=== PATIENT | female | born 2000 | race Two or more races ===

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

== ENCOUNTER 2020-04-27 12:30 | Emergency (ER) | payer MEDICAID, OTHER ==
[2020-04-27] MEDS ORDERED: PROMETHAZINE HCL 25 MG TABLET PO ONE (15:58)
[2020-04-27] MEDS ORDERED: LIDOCAINE 1% INJ-PF (10 MG/ML) 30 ML SDV INJ ONE (15:58)
[2020-04-27] MEDS ORDERED: AZITHROMYCIN 250 MG TABLET PO ONE (15:58)
[2020-04-27] MEDS ORDERED: CEFTRIAXONE INJ 250 MG VIAL IM ONE (15:58)
[2020-04-27 18:11] LABS: BACTERIA (WET MOUNT) 3+ BACTERIA SEEN; EPITHELIALS (WET MOUNT) 3+ EPITHELIALS SEEN; RBCS (WET MOUNT) RARE RBCS SEEN; T.VAGINALIS (WET MOUNT) NO TRICHOMONAS SEEN; WBCS (WET MOUNT) 3+ WBCS SEEN; YEAST (WET MOUNT) NO YEAST SEEN
[2020-04-27 18:17] LABS: ABSOLUTE EOSINOPHILS # (AUTO) 0.1 10^3/uL (0.0-0.6); ABSOLUTE LYMPHOCYTES (AUTO) 2.1 10^3/uL (0.5-4.7); ABSOLUTE MONOCYTES (AUTO) 0.6 10^3/uL (0.1-1.4); ABSOLUTE NEUT (AUTO) 4.5 10^3/uL (1.7-8.2); BASOPHILS % (AUTO) 0.5 % (0-2); EOSINOPHILS % (AUTO) 1.8 % (0-6); HEMATOCRIT 39.4 % (36.0-47.0); HEMOGLOBIN 12.8 g/dL (12.0-15.5); LYMPHOCYTES % (AUTO) 28.9 % (13-45); MEAN CORPUSCULAR HEMOGLOBIN 27.7 pg (27.0-33.4); MEAN CORPUSCULAR HGB CONC 32.6 g/dL (32.0-36.0); MEAN CORPUSCULAR VOLUME 85 fl (80-97); MONOCYTES % (AUTO) 7.5 % (3-13); PLATELET COUNT 264 10^3/uL (150-450); RED BLOOD COUNT 4.63 10^6/uL (3.72-5.28); RED CELL DISTRIBUTION WIDTH 15.5 % (11.5-14.0); SEGMENTED NEUTROPHILS % (AUTO) 61.3 % (42-78); TOTAL CELLS COUNTED % (AUTO) 100 %; WHITE BLOOD COUNT 7.4 10^3/uL (4.0-10.5)
[2020-04-27 18:24] LABS: ALBUMIN 4.1 g/dL (3.7-5.6); ALKALINE PHOSPHATASE 88 U/L (50-135); ANION GAP 8 (5-19); ASPARTATE AMINO TRANSFERASE 25 U/L (5-30); BILIRUBIN,DIRECT 0.1 mg/dL (0.0-0.4); BILIRUBIN,TOTAL 0.6 mg/dL (0.2-1.3); BLOOD UREA NITROGEN 7 mg/dL (7-20); CALCIUM 9.3 mg/dL (8.4-10.2); CARBON DIOXIDE 25 mmol/L (22-30); CHLORIDE 105 mmol/L (98-107); GLUCOSE 106 mg/dL (75-110); TOTAL PROTEIN 7.1 g/dL (6.3-8.2)
[2020-04-27] MEDS ORDERED: PROMETHAZINE HCL 25 MG TABLET ONE (18:27)
[2020-04-27] MEDS ORDERED: AZITHROMYCIN 250 MG TABLET ONE (18:27)
[2020-04-27] MEDS ORDERED: LIDOCAINE 1% INJ-PF (10 MG/ML) 30 ML SDV ONE (18:27)
[2020-04-27] MEDS ORDERED: CEFTRIAXONE INJ 250 MG VIAL ONE (18:27)
[2020-04-27] MEDS ORDERED: METRONIDAZOLE 500 MG TABLET PO ONE (18:32)
[2020-04-27] MEDS ORDERED: LEVONORGESTREL 1.5 MG TABLET (1 TAB/ER-USE) PO ONE (18:32)
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
[2020-04-27 19:28] VITALS: BP 128/64
[2020-04-27 19:34] LABS: CHLAM PCR NOT DETECTED (NOT DETECT)
[2020-04-29 07:38] LABS: HEPATITS B SURFACE ANTIGEN Negative (Negative)
[2020-04-29 11:55] LABS: HEPATITIS C VIRUS ANTIBODY <0.1 s/co ratio (0.0-0.9)
== END 2020-04-27 20:00 | disposition home or self-care (01) ==
LOC: ER 12:30
DX: T76.21XA Adult sexual abuse, suspected, initial encounter (principal); M79.10 Myalgia, unspecified site; Z20.2 Contact with and (suspected) exposure to infections with a predominantly sexual mode of transmission; Y07.59 Other non-family member, perpetrator of maltreatment and neglect
CPT/HCPCS: 99284; 96372; 36415; 87210; 84703; 85025; 86592; 80053; 86701; 87491; 87591; 80074; A9270; J3490; J0696